=== PATIENT | female | born 1995 | race Caucasian/White ===

== ENCOUNTER 2022-07-15 13:53 | Observation (INO) | payer SELFPAY ==
[~2022-07-15] VITALS: Ht 180.3 cm; Wt 106.1 kg
[2022-07-15 14:24] VITALS: BP 147/99
--- NOTE | 2022-07-15 14:24 | NUR ---
ARRIVAL PT ARRIVED AMBULATORY TO ED 6 WITH C/O LUQ PAIN. PT HAS A HISTORY OF PANCREATITIS. VITALS TAKEN AND DR NOTIFIED.
[2022-07-15] MEDS ORDERED: MORPHINE SULFATE IV STA (14:51)
[2022-07-15] MEDS ORDERED: MORPHINE SULFATE ONE ×2 (14:56→20:19)
[2022-07-15] MEDS ORDERED: ZOFRAN IV STA (14:58)
[2022-07-15] MEDS ORDERED: ZOFRAN ONE (14:58)
[2022-07-15 15:05] LABS: BASOPHIL % 0.1 % (0.0-0.2); EOSINOPHIL % 0.1 % (0.0-5.0); LYMPHOCYTES # 0.97 10^3/uL1 (1.0-4.8); LYMPHOCYTES % 6.6 % (24.0-44.0); MEAN CORP HGB 35.4 pg (26-34); MONOCYTES # 0.8 10^3/uL (0.3-0.8); MONOCYTES % 5.1 % (5.0-12.0); NEUTROPHILS % 87.8 % (41.0-85.0); PLATELET COUNT 307 10^3/uL (150-400); RED CELL DISTRIBUTION WIDTH 13.3 % (11.5-14.5)
[2022-07-15 15:05] LABS: BILIRUBIN,URINE 1+ (NEGATIVE); UROBILINOGEN,URINE 0.2 E.U./dL (0.2)
[2022-07-15 15:33] LABS: CARBON DIOXIDE 20.3 mmol/L (20.0-32)
--- NOTE | 2022-07-15 15:59 | ER.PDOC ---
General Chief Complaint: Abdomen Pain Stated Complaint: ABD PAIN Time seen by MD: 14:30 Source: patient Exam Limitations: no limitations History of Present Illness Initial Comments Abdominal pain today. Patient has a history of pancreatitis and drank alcohol heavily in the last few days. She is nauseated but no vomiting. No diarrhea. Timing/Duration: 4-6 hours Severity/Quality: moderate, sharpness Radiation: back Associated Symptoms: nausea/vomiting Exacerbated by: nothing Relieved By: nothing Allergies: Coded Allergies: No Known Allergies (Unverified , 07/15/22) Vital Signs First Vital Signs Date Time Temp Pulse Resp B/P (MAP) Pulse Ox O2 Delivery O2 Flow Rate FiO2 07/15/22 14:24 98.0 107 18 147/99 (115) 98 Room Air* 0 21 Last Vital Signs Date Time Temp Pulse Resp B/P (MAP) Pulse Ox O2 Delivery O2 Flow Rate FiO2 07/15/22 16:44 98.0 102 18 138/59 (85) 98 Room Air* 0 21 Past Medical History Medical History: other (Pancreatitis) Surgical History: cholecystectomy Family History Significant Family History: no pertinent family hx Social History Smoking: non-smoker Alcohol Use: occassionally Drug Use: none Constitutional: no symptoms reported EENTM: no symptoms reported Respiratory: no symptoms reported Cardiovascular: no symptoms reported Gastrointestinal: see HPI All Other Systems: Reviewed and Negative Physical Exam General Appearance: No Apparent Distress, WD/WN HEENT: PERRL/EOMI, Normal ENT Inspection, TMs Normal, Pharynx Normal Neck: Non-Tender, Full Range of Motion, Supple, Normal Inspection Respiratory: chest non-tender, lungs clear, normal breath sounds, no respiratory distress, no accessory muscle use Cardiovascular: Normal Peripheral Pulses, Regular Rate, Rhythm, No Edema, No Gallop, No JVD, No Murmur Gastrointestinal: Normal Bowel Sounds, No Organomegaly, No Pulsatile Mass, Guarding, Tenderness (Epigastric area) Back: Normal Inspection, No CVA Tenderness, No Vertebral Tenderness Extremities: Normal Range of Motion, Non-Tender, Normal Inspection, No Pedal Edema, No Calf Tenderness, Normal Capillary Refill, Pelvis Stable Neurologic/Psychiatric: furniture mover II-XII NML as Tested, No Motor/Sensory Deficits, Alert, Normal Mood/Affect, Oriented x 3 Skin: Normal Color, Warm/Dry Lymphatic: No Adenopathy Results/Orders Results/Orders Orders - BLAYNESANCHEZ Roque MD Cbc With Auto Diff (07/15/22 14:51) Comprehensive Metabolic Panel (07/15/22 14:51) Lipase. (07/15/22 14:51) Helicobacter Pylori (07/15/22 14:51) Ct Abd/Pel With Iv Contrast (07/15/22 14:51) Urinalysis (07/15/22 14:51) Alcohol(Ml) (07/15/22 14:51) Morphine Sulfate (Morphine Sulfate) (07/15/22 14:51) Hcg Urine (07/15/22 14:51) Morphine Sulfate (Morphine Sulfate) (07/15/22 14:56) Ondansetron Hcl/Pf (Zofran) (07/15/22 14:58) Ondansetron Hcl/Pf (Zofran) (07/15/22 14:58) Urine Culture (07/15/22 UNK) Hydromorphone Hcl (Dilaudid) (07/15/22 17:02) Hydromorphone Hcl (Dilaudid) (07/15/22 17:11) Vital Signs Date Time Temp Pulse Resp B/P (MAP) Pulse Ox O2 Delivery O2 Flow Rate FiO2 07/15/22 16:44 98.0 102 18 138/59 (85) 98 Room Air* 0 21 07/15/22 14:24 98.0 107 18 07/15/22 14:24 98.0 107 18 98 07/15/22 14:24 98.0 107 18 147/99 (115) 98 Room Air* 0 21 Administered Medications Medications (Trade) Dose Ordered Sig/Matias Route PRN Reason Start Time Stop Time Status Last Admin Dose Admin Morphine Sulfate (Morphine Sulfate) 4 mg STAT STAT IV 07/15/22 14:51 07/15/22 14:53 DC 07/15/22 14:59 4 MG Ondansetron HCl (Zofran) 4 mg STAT STAT IV 07/15/22 14:58 07/15/22 14:59 DC 07/15/22 15:06 4 MG Laboratory Tests Test 07/15/22 00:00 07/15/22 14:56 Urine Collection Type RANDOM Urine Color YELLOW Urine Appearance CLOUDY Urine Bilirubin 1+ (NEGATIVE) H Urine Ictotest NEGATIVE (NEGATIVE) Urine Ketones TRACE (NEGATIVE) H Urine Specific [place] >=1.030 (1.005-1.030) Urine pH 7.0 (4.5-8.0) Urine Protein 2+ (NEGATIVE) H Urine Urobilinogen 0.2 E.U./dL (0.2) Urine Nitrate NEGATIVE (NEGATIVE) Urine Leukocyte Esterase NEGATIVE (NEGATIVE) Urine Glucose (Auto)(UA) NEGATIVE (NEGATIVE) Urine Blood NEGATIVE (NEGATIVE) Urine RBC 0-2 RBC/HPF (NONE SEEN) Urine WBC 0-2 WBC/HPF (0-2) Urine Squamous Epithelial Cells MODERATE (<=FEW) Urine Bacteria MANY (NONE SEEN) H Urine HCG, Qualitative NEGATIVE (NEGATIVE) White Blood Count 14.8 10^3/uL (4.5-11.0) H Red Blood Count 4.89 10^6/uL (4.00-5.20) Hemoglobin 17.3 g/dL (12.0-15.0) H Hematocrit 49.0 % (36.0-46.0) H Mean Corpuscular Volume 100.2 fL (78-100) H Mean Corpuscular Hemoglobin 35.4 pg (26-34) H Mean Corpuscular Hemoglobin Concent 35.3 g/dL (33-36.5) Red Cell Distribution Width 13.3 % (11.5-14.5) Platelet Count 307 10^3/uL (150-400) Mean Platelet Volume 9.5 fL (7.8-11.0) Neutrophils (%) (Auto) 87.8 % (41.0-85.0) H Lymphocytes (%) (Auto) 6.6 % (24.0-44.0) *L Monocytes (%) (Auto) 5.1 % (5.0-12.0) Neutrophils # (Auto) 13.0 10^3/uL (1.8-7.7) H Lymphocytes # (Auto) 0.97 10^3/uL1 (1.0-4.8) L Monocytes # (Auto) 0.8 10^3/uL (0.3-0.8) Absolute Immature Granulocyte (auto 0.04 10^3 u/L (0-2) Absolute Eosinophils (auto) 0.0 10^3/uL (0.0-0.2) Immature Granulocytes % 0.30 % (0.00-0.50) Eosinophils % 0.1 % (0.0-5.0) Basophils % 0.1 % (0.0-0.2) Basophils # 0.0 10^3/uL (0.0-0.1) Sodium Level 138 mmol/L (132-145) Potassium Level 3.9 mmol/L (3.6-5.2) Chloride Level 104.0 mmol/L (96-109) Carbon Dioxide Level 20.3 mmol/L (20.0-32) Anion Gap 17.6 Blood Urea Nitrogen 6 mg/dL (7-18) L Creatinine 1.11 mg/dL (0.59-1.40) Estimated GFR () 70.3 (>/=60) Est GFR (CKD-EPI)(Non-Afr [place]) 58.1 (>/=60) BUN/Creatinine Ratio 5.0 (10.0-20.0) L Glucose Level 194 mg/dL (70-110) H Calcium Level 9.1 mg/dL (8.4-10.5) Total Bilirubin 1.1 mg/dL (0.2-1.0) H Aspartate Amino Transferase (AST) 105 U/L (0-35) H Alanine Aminotransferase (ALT) 147 U/L (12-78) H Alkaline Phosphatase 126 U/L (50-136) Total Protein 7.6 g/dL (6.4-8.2) Albumin 3.5 g/dL (3.4-5.0) Globulin 4.1 Albumin/Globulin Ratio 0.853 Lipase 756 U/L (16-77) H Serum Alcohol < 3 mg/dL (0-50) Helicobacter pylori Screen NEGATIVE (NEGATIVE) Progress Progress CT abdomen/pelvis: Large amount of peripancreatic inflammation, suggesting acute pancreatitis. Glucose 194, bilirubin 1.1, AST 105, ALT 147, rest of chemistry is normal. WBC 14.8. Alcohol less than 3. Urine test is negative. Urinalysis show many bacteria and moderate squamous epithelial cells. No leukocyte esterase. WBCs in the urine is normal. Patient received morphine, Zofran, Dilaudid, IVF and Rocephin. ER DEPART Departure Time of Disposition: 17:16 Disposition: 09 ADMITTED INPATIENT Impression: Primary Impression: Acute pancreatitis Additional Impressions: Sepsis UTI (urinary tract infection) Condition: Improved Referrals: PCP,UNKNOWN (PCP) PRIMARY CARE PROVIDER Comments Admitted to Dr. Francisco Duration or Time Spent with Pa: 60 min Problem Qualifiers Primary Impression: Acute pancreatitis Pancreatitis type: unspecified pancreatitis type Acute pancreatitis complication: unspecified Qualified Codes: K85.90 - Acute pancreatitis without necrosis or infection, unspecified Additional Impressions: Sepsis Sepsis type: sepsis due to unspecified organism Sepsis acute organ dysfunction status: unspecified Qualified Codes: A41.9 - Sepsis, unspecified organism UTI (urinary tract infection) Urinary tract infection type: site unspecified Hematuria presence: with hematuria Qualified Codes: N39.0 - Urinary tract infection, site not specified; R31.9 - Hematuria, unspecified SANCHEZ CISNEROS MD July 15, 2022 15:59
[2022-07-15 16:44] VITALS: BP 138/59
--- NOTE | 2022-07-15 16:46 | DIREP ---
PROCEDURE:CT ABD/PELVIS W/ CONTRAST TECHNIQUE:Following the intravenous administration of contrast material, venous phase cuts were obtained through the abdomen and pelvis. The images were viewed at lung and soft tissue settings. Sagittal and coronal reconstructions are provided. COMPARISON:None. INDICATIONS:Epigastric pain FINDINGS: LOWER CHEST:The lung bases are clear. LIVER:There is a small patch of low density in the anterior aspect of the medial segment of the left hepatic lobe adjacent to the falciform ligament, a typical location and appearance for focal fatty infiltration. BILIARY:The gallbladder has been resected. PANCREAS:There is a large amount of inflammatory change surrounding the head, neck and proximal body. SPLEEN:Normal. URINARY TRACT:No urinary tract calculi are demonstrated. There is no hydronephrosis. ADRENALS:Normal. AORTA/VASCULAR:Normal. RETROPERITONEUM:Normal. BOWEL/MESENTERY:The vermiform appendix is visualized, and has a normal appearance. No bowel dilatation is identified. ABDOMINAL WALL:Normal. PELVIS:Normal. BONES:Normal. OTHER:Normal. CONCLUSION: Large amount of peripancreatic inflammation, suggesting acute pancreatitis. Dictated by: Albertina Lemon III, MD on 07/15/2022 at 04:41 PM
[2022-07-15] MEDS ORDERED: DILAUDID IV STA (17:02)
[2022-07-15] MEDS ORDERED: DILAUDID ONE (17:11)
[2022-07-15] MEDS ORDERED: ROCEPHIN 1,000 MG in NS 100ML 100 ML IV STA (17:19)
[2022-07-15] MEDS ORDERED: NS 1000ML 1,000 ML IV STA (17:19)
--- NOTE | 2022-07-15 17:41 | NUR ---
ARRIVAL PT ARRIVED VIA W/C AND GIVEN REPORT. VS AND ASSESSMENT COMPLETED.
--- NOTE | 2022-07-15 18:56 | PCM.HP ---
History of Present Illness Hx of Present Illness Ms. Alegria is a very pleasant 27-year-old female who presented after a several day drinking binge with acute epigastric pain. The pain was very similar to prior episodes of pancreatitis Of which she states she has had 3. She does states that her nausea and pain are somewhat better after receipt of IV pain and antiemetic medications in the ER, though her appetite has not yet returned. She reports that she does not usually get shaky after stopping alcohol whole intake, and she is not aware of any other medical issues. She had been in her usual state of good health prior to the onset of pain. Review of Systems Other Complete review of systems negative except as per HPI Allergies: Coded Allergies: No Known Allergies (Unverified , 07/15/22) VTE VTE Risk Total Score: 1 VTE Risk Score VTE Risk: Score 0-1 = Low Risk (Aggressive mobilization; early ambulation; no VTE prophylaxis required) Score 2: Moderate Risk (Intermittent/Pneumatic Compression Device OR Lovenox/Heparin/Coumadin) Score 3-4: High Risk (Intermittent/Pneumatic Compression Device AND Lovenox/Heparin/Coumadin) Score > or =5: Highest Risk (Intermittent/Pneumatic Compression Device AND Lovenox/Heparin/Coumadin) VTE VTE Present on Admission: No Currently receiving anticoagul: No VTE Risk Total Score: 1 Exam Vital Signs Vital Signs Date Time Temp Pulse Resp B/P (MAP) Pulse Ox O2 Delivery O2 Flow Rate FiO2 07/15/22 18:03 Room Air 0.00 07/15/22 16:44 98.0 102 18 138/59 (85) 98 21 General Appearance: Alert, Oriented X3, Cooperative, No acute distress HEENT: Atraumatic, PERRLA, EOMI, Mucous membr. moist/pink Respiratory: Clear to auscultation, Normal air movement Cardiovascular: Regular rate, Normal S1 Abdominal: Normal bowel sounds, Soft, Other (Focal epigastric pain) Extremities: No clubbing, No cyanosis Skin: No rash, No breakdown Neuro: Normal gait, Normal speech, Strength at 5/5 X4 ext Psych/Mental Status: Mental status NL, Mood NL Assessment/Plan Assessment/Plan Problems: (1) Alcohol abuse Status: Chronic Assessment & Plan: Appears to be episodic, no sign of cirrhosis on labs we will get a PT/INR as well patient does not report DTs when she stops drinking so we will make as needed Librium available if needed; Currently counseled on cessation ICD Code: F10.10 - Alcohol abuse, uncomplicated SNOMED: [id number] (2) Acute pancreatitis Status: Acute Assessment & Plan: Secondary to alcohol abuse, strongly counseled on alcohol cessation, started D5 half-normal saline as well as antiemetics and scheduled Ofirmev as well as morphine. Will advance diet tomorrowAs tolerated ICD Code: K85.90 - Acute pancreatitis without necrosis or infection, unspecified SNOMED: 700847741 Problem Qualifiers (1) Acute pancreatitis: Pancreatitis type: unspecified pancreatitis type Acute pancreatitis complication: unspecified Qualified Codes: K85.90 - Acute pancreatitis without necrosis or infection, unspecified YULIA LANCASTER MD July 15, 2022 18:56
[2022-07-15 19:16] VITALS: BP 159/109
[2022-07-15] MEDS ORDERED: ROCEPHIN ONE (19:35)
[2022-07-15] MEDS ORDERED: NS 100ML 100 ML IV ONE (19:36)
[2022-07-15] MEDS: ZOFRAN IV SCH (19:56)
[2022-07-15] MEDS: OFIRMEV IV SCH (19:56)
[2022-07-15] MEDS: MORPHINE SULFATE IV PRN ×2 (20:30→22:35)
[2022-07-15] MEDS ORDERED: ROCEPHIN IV ONE (20:32)
[2022-07-15] MEDS: D5W-1/2NS 1000ML 1,000 ML IV SCH (21:54)
[2022-07-15 23:59] VITALS: BP 166/109
[2022-07-16] MEDS: MORPHINE SULFATE IV PRN ×2 (00:50→07:30)
[2022-07-16] MEDS ORDERED: ZOFRAN IV PRN (01:00)
[2022-07-16] MEDS ORDERED: ATIVAN IV ONE (01:00)
[2022-07-16] MEDS ORDERED: COMPAZINE IV ONE (01:00)
[2022-07-16] MEDS: ZOFRAN IV SCH (02:39)
[2022-07-16] MEDS: OFIRMEV IV SCH (02:46)
[2022-07-16 04:44] VITALS: BP 113/77
[2022-07-16] MEDS: D5W-1/2NS 1000ML 1,000 ML IV SCH (04:52)
[2022-07-16 05:23] LABS: BASOPHIL % 0.2 % (0.0-0.2); EOSINOPHIL # 0.2 10^3/uL (0.0-0.2); EOSINOPHIL % 1.4 % (0.0-5.0); LYMPHOCYTES # 1.41 10^3/uL1 (1.0-4.8); LYMPHOCYTES % 12.4 % (24.0-44.0); MEAN CORP HGB 35.3 pg (26-34); MONOCYTES # 0.8 10^3/uL (0.3-0.8); MONOCYTES % 6.9 % (5.0-12.0); NEUTROPHILS % 78.8 % (41.0-85.0); PLATELET COUNT 233 10^3/uL (150-400); RED CELL DISTRIBUTION WIDTH 13.5 % (11.5-14.5)
[2022-07-16 05:35] LABS: CARBON DIOXIDE 23.2 mmol/L (20.0-32)
[2022-07-16 07:22] VITALS: BP 119/83
[2022-07-16] MEDS ORDERED: [UNRECOGNIZED DRUG - CODE] PO (10:10)
--- NOTE | 2022-07-16 10:22 | PRM.DC ---
Discharge Summary Date of Discharge: July 16, 2022 Time of Request to Discharge: 10:15 Hospital Course Ms. herrera is a pleasant 27-year-old female with past medical history significant for binge drinking who presented with acute epigastric pain. The patient was found to have peripancreatic swelling despite a rather minimal elevation in her lipase, And was admitted overnight for IV fluids as well as Pain control and antiemetics and by the following morning felt markedly better. As a consequence, the patient was discharged home with strong counseling to give up drinking. General: Alert, Oriented X3, Cooperative, No acute distress HEENT: Atraumatic, PERRLA, EOMI, Mucous membr. moist/pink Neck: Supple, No JVD, No thyromegaly Lungs: Clear to auscultation, Normal air movement Heart: Regular rate, Normal S1 Abdomen: Normal bowel sounds, Soft Extremities: No clubbing, No cyanosis Skin: No rashes, No breakdown Neuro: Normal gait, Normal speech, Strength at 5/5 X4 ext Psych/Mental Status: Mental status NL, Mood NL Scheduled PRN Ondansetron Hcl (Ondansetron Hcl), 8 MG PO TID PRN for nausea Sepsis Evaluation @ Discharge 07/16/22 07:30 Course Sepsis Screening Results: Posi: NEGATIVE Sepsis Qualifier/Stage: NO DEFINITE RISK Duration or Total Time Spent w: 60 min Vitals & review Data Vital Sign - Last 24 Hours 07/15/22 07/15/22 07/15/22 07/15/22 14:24 14:24 14:24 16:44 Temp 98.0 98.0 98.0 98.0 Pulse 107 107 107 102 Resp 18 18 18 18 B/P (MAP) 147/99 (115) 138/59 (85) Pulse Ox 98 98 98 O2 Delivery Room Air* Room Air* O2 Flow Rate 0 0 FiO2 21 21 07/15/22 07/15/22 07/15/22 07/15/22 17:46 18:03 19:16 21:20 Temp 98.2 Pulse 88 Resp 18 B/P (MAP) 159/109 (126) Pulse Ox 99 O2 Delivery Room Air Room Air Room Air* Room Air O2 Flow Rate 0.00 0.00 0 0.00 FiO2 21 07/15/22 07/16/22 07/16/22 07/16/22 23:59 04:44 07:22 09:01 Temp 98.3 98.3 98.0 Pulse 99 81 85 Resp 18 20 18 B/P (MAP) 166/109 (128) 113/77 (89) 119/83 (95) Pulse Ox 93 98 96 O2 Delivery Room Air* Room Air* Room Air* Room Air O2 Flow Rate 0 0 0 0.00 FiO2 21 21 21 Intake and Output 07/16/22 07:00 Intake Total 2205 ml Balance 2205 ml Laboratory Tests Test 07/15/22 00:00 07/15/22 14:40 07/15/22 14:56 07/15/22 17:30 Urine Collection Type RANDOM Urine Color YELLOW Urine Appearance CLOUDY Urine Bilirubin 1+ Urine Ictotest NEGATIVE Urine Ketones TRACE Urine Specific [place] >=1.030 Urine pH 7.0 Urine Protein 2+ Urine Urobilinogen 0.2 E.U./dL Urine Nitrate NEGATIVE Urine Leukocyte Esterase NEGATIVE Urine Glucose (Auto)(UA) NEGATIVE Urine Blood NEGATIVE Urine RBC 0-2 RBC/HPF Urine WBC 0-2 WBC/HPF Urine Squamous Epithelial Cells MODERATE Urine Bacteria MANY Urine HCG, Qualitative NEGATIVE Prothrombin Time 10.6 SEC INR International Normalized Ratio 1.0 White Blood Count 14.8 10^3/uL Red Blood Count 4.89 10^6/uL Hemoglobin 17.3 g/dL Hematocrit 49.0 % Mean Corpuscular Volume 100.2 fL Mean Corpuscular Hemoglobin 35.4 pg Mean Corpuscular Hemoglobin Concent 35.3 g/dL Red Cell Distribution Width 13.3 % Platelet Count 307 10^3/uL Mean Platelet Volume 9.5 fL Neutrophils (%) (Auto) 87.8 % Lymphocytes (%) (Auto) 6.6 % Monocytes (%) (Auto) 5.1 % Neutrophils # (Auto) 13.0 10^3/uL Lymphocytes # (Auto) 0.97 10^3/uL1 Monocytes # (Auto) 0.8 10^3/uL Absolute Immature Granulocyte (auto 0.04 10^3 u/L Absolute Eosinophils (auto) 0.0 10^3/uL Immature Granulocytes % 0.30 % Eosinophils % 0.1 % Basophils % 0.1 % Basophils # 0.0 10^3/uL Sodium Level 138 mmol/L Potassium Level 3.9 mmol/L Chloride Level 104.0 mmol/L Carbon Dioxide Level 20.3 mmol/L Anion Gap 17.6 Blood Urea Nitrogen 6 mg/dL Creatinine 1.11 mg/dL Estimated GFR () 70.3 Est GFR (CKD-EPI)(Non-Afr Iranian) 58.1 BUN/Creatinine Ratio 5.0 Glucose Level 194 mg/dL Calcium Level 9.1 mg/dL Total Bilirubin 1.1 mg/dL Aspartate Amino Transf (AST/SGOT) 105 U/L Alanine Aminotransferase (ALT/SGPT) 147 U/L Alkaline Phosphatase 126 U/L Total Protein 7.6 g/dL Albumin 3.5 g/dL Globulin 4.1 Albumin/Globulin Ratio 0.853 Lipase 756 U/L Serum Alcohol < 3 mg/dL Helicobacter pylori Screen NEGATIVE Lactic Acid Level 1.2 mmol/L Test 07/16/22 05:09 White Blood Count 11.4 10^3/uL Red Blood Count 4.33 10^6/uL Hemoglobin 15.3 g/dL Hematocrit 44.8 % Mean Corpuscular Volume 103.5 fL Mean Corpuscular Hemoglobin 35.3 pg Mean Corpuscular Hemoglobin Concent 34.2 g/dL Red Cell Distribution Width 13.5 % Platelet Count 233 10^3/uL Mean Platelet Volume 9.7 fL Neutrophils (%) (Auto) 78.8 % Lymphocytes (%) (Auto) 12.4 % Monocytes (%) (Auto) 6.9 % Neutrophils # (Auto) 9.0 10^3/uL Lymphocytes # (Auto) 1.41 10^3/uL1 Monocytes # (Auto) 0.8 10^3/uL Absolute Immature Granulocyte (auto 0.03 10^3 u/L Absolute Eosinophils (auto) 0.2 10^3/uL Immature Granulocytes % 0.30 % Eosinophils % 1.4 % Basophils % 0.2 % Basophils # 0.0 10^3/uL Sodium Level 132 mmol/L Potassium Level 4.4 mmol/L Chloride Level 103.0 mmol/L Carbon Dioxide Level 23.2 mmol/L Glucose Level 197 mg/dL Blood Urea Nitrogen 7 mg/dL Creatinine 1.02 mg/dL Calcium Level 8.6 mg/dL Anion Gap 10.2 Estimated GFR () 77.5 Est GFR (CKD-EPI)(Non-Afr [place]) 64.1 BUN/Creatinine Ratio 6.0 Current Medications Medications (Trade) Dose Ordered Sig/Matias PRN Reason Start Time Stop Time Status Last Admin Acetaminophen (Ofirmev) 1,000 mg Q8H 07/15/22 19:00 07/16/22 18:59 07/16/22 02:46 Morphine Sulfate (Morphine Sulfate) 2 mg Q2H PRN PAIN 4 - 6 07/15/22 19:00 08/14/22 18:59 07/16/22 07:30 Ondansetron HCl (Zofran) 8 mg Q4H PRN NAUSEA / VOMITING 07/16/22 01:00 08/15/22 00:59 07/16/22 00:52 Ondansetron HCl (Zofran) 8 mg Q8H 07/15/22 19:00 08/14/22 18:59 07/15/22 19:56 LEVEL 1 SEPSIS INFECTION CRITE: ABX Therapy, None/Not assessed LEVEL 2-SIRS (LIST ALL THAT AP: None/Not assessed Cardiovascular Evidence: Not Assessed or None Hematologic Evidence: None/Not assessed Hepatic Evidence: None/Not assessed Metabolic Evidence: None/Not assessed Neurological Evidence: None/Not assessed Respiratory Evidence: None/Not assessed Renal Evidence: None/Not assessed O2 Sat by Pulse Oximetry: 96 Oxygen Flow Rate: 0.00 YULIA LANCASTER MD July 16, 2022 10:22
--- NOTE | 2022-07-16 11:45 | NUR ---
DISCHARGE DISCHARGE SESSION HELD WITH PT. PT DENIES PAIN AND NO APPARENT ACUTE DISTRESS NOTED. FOLLOW UP INSTRUCTIONS AND NEW/CURRENT MEDICATION EDUCATION ADDRESSED WITH PT. VERBALIZED UNDERSTANDING. PT BELONGINGS DISCHARGED WITH PT. PT LEFT UNIT ESCORTED BY THIS NURSE. LEFT WITH FAMILY MEMBER IN PERSONAL VEHICLE. RELINQUISHED CARE.
[2022-07-16 11:50] VITALS: BP 119/83
== END 2022-07-16 11:45 | disposition home or self-care (01) ==
LOC: ER 13:53 → MS 17:22
PROVIDERS: ADMIT Surgery; ATTEND Surgery
DX: K85.20 Alcohol induced acute pancreatitis without necrosis or infection (principal); N39.0 Urinary tract infection, site not specified; F10.10 Alcohol abuse, uncomplicated; Z79.899 Other long term (current) drug therapy
CPT/HCPCS: 96375 ×2; 96376 ×2; 96365; 96361; 99285; 87086; 74177; 80053; 85025 ×2; 86677; 36415 ×2; 87040 ×2; 83605; 82077; 81001; 81025; 83690; 85610; 80048; 80076; G0378 ×18; J7030; J1170; J0131 ×2; J2405 ×3; J0696 ×2; Q9965; J2060; J0780